=== PATIENT | female | born 1990 | race Caucasian/White ===

== ENCOUNTER 2023-07-15 14:24 | Inpatient (IN) | payer OTHER ==
[2023-07-15 15:19] VITALS: BMI 27.1
[2023-07-15] MEDS ORDERED: MAG HYDROX/AL HYDROX/SIMETH 30 ML UNIT-DOSE CUP PO PRN (18:01)
[2023-07-15] MEDS ORDERED: LOPERAMIDE HCL 2 MG CAPSULE PO PRN (18:01)
[2023-07-15] MEDS ORDERED: cloNIDine HCL 0.1 MG TABLET PO PRN (18:01)
[2023-07-15] MEDS ORDERED: BISMUTH SUBSALICYLATE 524 MG/30 ML PO PRN (18:01)
[2023-07-15] MEDS ORDERED: POLYETHYLENE GLYCOL (HEALTHYLAX) 3350 17 GM PACKET PO PRN (18:01)
[2023-07-15] MEDS ORDERED: methaDONE HCL 10 MG TABLET (FOR DETOX USE ONLY) PO ONE (18:01)
[2023-07-15] MEDS ORDERED: MAGNESIUM HYDROX 2400MG/30ML ORAL SUSPENSION 30 ML CUP PO PRN (18:01)
[2023-07-15] MEDS ORDERED: METHOCARBAMOL 500 MG TABLET PO PRN (18:01)
[2023-07-15] MEDS ORDERED: BENZONATATE 200 MG CAPSULE PO PRN (18:01)
[2023-07-15] MEDS ORDERED: BENZOCAINE/MENTHOL (CHLORASEPTIC ) LOZENGE MM PRN (18:01)
[2023-07-15] MEDS ORDERED: IBUPROFEN 600 MG TABLET (FP) PO PRN (18:01)
[2023-07-15] MEDS ORDERED: guaiFENesin 600 MG TABLET.ER (FP) PO PRN (18:01)
[2023-07-15] MEDS ORDERED: NALOXONE HCL 0.4 MG/ML VIAL IM PRN (18:01)
[2023-07-15] MEDS ORDERED: ACETAMINOPHEN 325 MG TABLET (FP) PO PRN (18:01)
[2023-07-15] MEDS ORDERED: NALOXONE HCL (KLOXXADO) 8 MG SPRAY NS PRN (18:01)
[2023-07-15] MEDS ORDERED: DICYCLOMINE HCL 10 MG CAPSULE PO PRN (18:01)
[2023-07-15] MEDS ORDERED: NICOTINE POLACRILEX 2 MG GUM BUC PRN (18:01)
[2023-07-15] MEDS ORDERED: IBUPROFEN 400 MG TABLET (FP) PO PRN (18:01)
[2023-07-15] MEDS ORDERED: methaDONE HCL 10 MG TABLET (FOR DETOX USE ONLY) ONE (18:28)
[2023-07-15] MEDS ORDERED: MELATONIN 5 MG TABLETS PO SCH (22:00)
[2023-07-15] MEDS ORDERED: THIAMINE HCL 100 MG TABLET (FP) PO SCH (22:00)
[2023-07-15] MEDS: diazePAM 5 MG TABLET PO PRN (22:04)
[2023-07-16] MEDS: diazePAM 5 MG TABLET PO PRN ×2 (02:21→10:03)
[2023-07-16 07:25] VITALS: RESP 17
[2023-07-16] MEDS ORDERED: PRENATAL VITAMINS W/ FOLIC ACID TABLET (FP) PO SCH (10:00)
[2023-07-16] MEDS ORDERED: NICOTINE 14 MG/24 HOURS TOPICAL PATCH TD SCH (10:00)
[2023-07-16 10:39] VITALS: BP 121/84; PULSE 90; TEMP 96.9
[2023-07-16 11:48] LABS: HEMATOCRIT 33.4 % (32.4-45.2); HEMOGLOBIN 11.2 GM/dL (10.7-15.3); MCH 26.6 pg (25.7-33.7); MCHC 33.6 g/dl (32.0-36.0); MEAN CELL VOLUME 79.3 fl (80-96); MEAN PLT VOLUME 8.9 fl (7.5-11.1); PLATELET COUNT 257 10^3/uL (134-434); RBC 4.21 M/mm3 (3.60-5.2); RDW 18.4 % (11.6-15.6); WHITE BLOOD COUNT 9.9 K/mm3 (4.0-10.0)
[2023-07-16 12:01] LABS: ALBUMIN 3.4 g/dl (3.4-5.0); CALCIUM 8.5 mg/dL (8.5-10.1)
[2023-07-16 12:04] LABS: CREATININE 0.5 mg/dL (0.55-1.3)
[2023-07-16 12:06] LABS: BILIRUBIN,TOTAL 0.4 mg/dL (0.2-1)
[2023-07-17] MEDS ORDERED: methaDONE HCL 10 MG TABLET (FOR DETOX USE ONLY) PO ONE (10:00)
[2023-07-19] MEDS ORDERED: methaDONE HCL 10 MG TABLET (FOR DETOX USE ONLY) PO ONE (10:00)
== END 2023-07-16 12:50 | disposition left against medical advice (07) | DRG 770 ==
LOC: YASAS 14:24 → Y6N 18:35
PROVIDERS: ADMIT Allergy & Immunology; ATTEND Surgery
PROC: HZ2ZZZZ Detoxification Services for Substance Abuse Treatment (ICD-10-PCS; principal; 2023-07-15)
DX: F11.23 Opioid dependence with withdrawal (principal); F14.20 Cocaine dependence, uncomplicated; F13.20 Sedative, hypnotic or anxiolytic dependence, uncomplicated; F12.20 Cannabis dependence, uncomplicated; F17.210 Nicotine dependence, cigarettes, uncomplicated; F31.9 Bipolar disorder, unspecified; F19.282 Other psychoactive substance dependence with psychoactive substance-induced sleep disorder; F19.24 Other psychoactive substance dependence with psychoactive substance-induced mood disorder; B19.20 Unspecified viral hepatitis C without hepatic coma; Z91.410 Personal history of adult physical and sexual abuse
CPT/HCPCS: 36415; 80053; 81025; 85027; 86593; 86780; 87635; 93005; 93010